=== PATIENT | female | born 1980 | race Two or more races ===

== ENCOUNTER 2024-05-15 10:34 | Inpatient (IN) | payer OTHER ==
[2024-05-15] MEDS ORDERED: IBUPROFEN 400 MG TABLET (FP) PO PRN (11:55)
[2024-05-15] MEDS ORDERED: BISMUTH SUBSALICYLATE 524 MG/30 ML PO PRN (11:55)
[2024-05-15] MEDS ORDERED: NALOXONE (NARCAN) HCL 4 MG/0.1 ML SPRAY NS PRN (11:55)
[2024-05-15] MEDS ORDERED: MAG HYDROX/AL HYDROX/SIMETH 30 ML UNIT-DOSE CUP PO PRN (11:55)
[2024-05-15] MEDS ORDERED: NICOTINE POLACRILEX 2 MG GUM BUC PRN (11:55)
[2024-05-15] MEDS ORDERED: LOPERAMIDE HCL 2 MG CAPSULE PO PRN (11:55)
[2024-05-15] MEDS ORDERED: methaDONE HCL 10 MG TABLET (FOR DETOX USE ONLY) PO PRN (11:55)
[2024-05-15] MEDS ORDERED: guaiFENesin 600 MG TABLET.ER (FP) PO PRN (11:55)
[2024-05-15] MEDS ORDERED: DICYCLOMINE HCL 10 MG CAPSULE PO PRN (11:55)
[2024-05-15] MEDS ORDERED: POLYETHYLENE GLYCOL (HEALTHYLAX) 3350 17 GM PACKET PO PRN (11:55)
[2024-05-15] MEDS ORDERED: MAGNESIUM HYDROX 2400MG/30ML ORAL SUSPENSION 30 ML CUP PO PRN (11:55)
[2024-05-15] MEDS ORDERED: BENZOCAINE/MENTHOL (CHLORASEPTIC ) LOZENGE MM PRN (11:55)
[2024-05-15] MEDS ORDERED: BENZONATATE 200 MG CAPSULE PO PRN (11:55)
[2024-05-15] MEDS ORDERED: ACETAMINOPHEN 325 MG TABLET (FP) PO PRN (11:55)
[2024-05-15 12:49] VITALS: BMI 27.1
[2024-05-15] MEDS: methaDONE HCL 10 MG TABLET (FOR DETOX USE ONLY) PO ONE ×2 (14:00→22:35)
[2024-05-15] MEDS: BUPRENORPHINE/NALOXONE 0.5 MG/0.125 MG FILM SL ONE ×2 (14:16→22:36)
[2024-05-15] MEDS: cloNIDine HCL 0.1 MG TABLET PO SCH (14:16)
[2024-05-15] MEDS ORDERED: cloNIDine HCL 0.1 MG TABLET ONE (14:18)
[2024-05-15] MEDS ORDERED: BUPRENORPHINE/NALOXONE 0.5 MG/0.125 MG FILM ONE (14:18)
[2024-05-15] MEDS ORDERED: methaDONE HCL 10 MG TABLET (FOR DETOX USE ONLY) ONE (14:18)
[2024-05-15] MEDS: diazePAM 5 MG TABLET PO SCH (17:30)
[2024-05-15] MEDS: MELATONIN 5 MG TABLETS PO SCH (22:34)
[2024-05-15] MEDS: THIAMINE 100 MG TABLET PO SCH (22:34)
[2024-05-15] MEDS: METHOCARBAMOL 500 MG TABLET PO PRN (22:36)
[2024-05-16] MEDS: PRENATAL VITAMINS W/ FOLIC ACID TABLET (FP) PO SCH (09:16)
[2024-05-16] MEDS: BUPRENORPHINE/NALOXONE 0.5 MG/0.125 MG FILM SL SCH (09:17)
[2024-05-16] MEDS: ONDANSETRON *ODT* 4 MG TABLET SL PRN (12:05)
[2024-05-16 12:24] LABS: HEMATOCRIT 40.3 % (34.1-44.9); HEMOGLOBIN 13.1 g/dL (11.2-15.7); MCHC 32.5 g/dl (32.2-35.5); MEAN CELL VOLUME 98.5 fl (79.4-94.8); MEAN PLT VOLUME 9.4 fl (9.4-12.3); PLATELET COUNT 449 x10^3/uL (182-369); RDW 12.3 % (12.2-17.1)
[2024-05-16 12:28] LABS: POTASSIUM 4.2 mmol/L (3.5-5.1)
[2024-05-16 12:48] LABS: ALBUMIN 4.1 g/dl (3.4-5.0); BLOOD UREA NITROGEN 7.6 mg/dL (7-18); CALCIUM 9.4 mg/dL (8.5-10.1)
[2024-05-16 12:52] LABS: CREATININE 0.7 mg/dL (0.55-1.3)
[2024-05-16 12:53] LABS: BILIRUBIN,TOTAL 0.6 mg/dL (0.2-1); TOT PROT 7.9 g/dl (6.4-8.2)
[2024-05-16] MEDS: diazePAM 5 MG TABLET PO PRN (14:42)
[2024-05-16] MEDS: MIRTAZAPINE 15 MG TABLET (FP) PO SCH (22:24)
[2024-05-16] MEDS: SUVOREXANT 10 MG TABLET PO PRN (23:52)
[2024-05-16] MEDS: hydrOXYzine PAMOATE 25 MG CAPSULE (FP) PO PRN (23:56)
[2024-05-17] MEDS: diazePAM 5 MG TABLET PO SCH (05:41)
[2024-05-17] MEDS: methaDONE HCL 10 MG TABLET (FOR DETOX USE ONLY) PO ONE (09:32)
[2024-05-17] MEDS: BUPRENORPHINE/NALOXONE 2 MG/0.5 MG FILM PACKET SL SCH (09:32)
[2024-05-17] MEDS: ASPIRIN 81 MG CHEWABLE TABLETS PO SCH (14:47)
[2024-05-18] MEDS: diazePAM 5 MG TABLET PO SCH (05:48)
[2024-05-18] MEDS: BUPRENORPHINE/NALOXONE 4 MG/1 MG FILM PACKET SL SCH (09:20)
[2024-05-18] MEDS: IBUPROFEN 600 MG TABLET (FP) PO PRN (17:18)
[2024-05-19] MEDS: diazePAM 5 MG TABLET PO ONE (05:39)
[2024-05-19] MEDS: BUPRENORPHINE/NALOXONE 8 MG/2 MG FILM PACKET SL SCH (09:38)
[2024-05-19] MEDS: LIDOCAINE 5% TOPICAL PATCH TP SCH (11:05)
[2024-05-19] MEDS: LIDOCAINE PATCH REMOVAL MC SCH (22:07)
[2024-05-20] MEDS: BUPRENORPHINE/NALOXONE 8 MG/2 MG FILM PACKET SL SCH (09:29)
[2024-05-21 21:44] VITALS: RESP 18
[2024-05-21] MEDS: BUPRENORPHINE/NALOXONE 8 MG/2 MG FILM PACKET SL SCH (22:30)
[2024-05-22] MEDS: BUPRENORPHINE/NALOXONE 8 MG/2 MG FILM PACKET SL ONE (05:55)
[2024-05-22 09:09] VITALS: BP 113/85; PULSE 86; TEMP 97.8
== END 2024-05-22 10:34 | disposition home or self-care (01) | DRG 773 ==
LOC: YASAS 10:34 → Y6N 14:28
PROVIDERS: ADMIT Allergy & Immunology; ATTEND Allergy & Immunology
PROC: HZ2ZZZZ Detoxification Services for Substance Abuse Treatment (ICD-10-PCS; principal; 2024-05-15)
DX: F11.23 Opioid dependence with withdrawal (principal); F13.230 Sedative, hypnotic or anxiolytic dependence with withdrawal, uncomplicated; F17.210 Nicotine dependence, cigarettes, uncomplicated; F19.282 Other psychoactive substance dependence with psychoactive substance-induced sleep disorder; F19.280 Other psychoactive substance dependence with psychoactive substance-induced anxiety disorder; M54.50 Low back pain, unspecified; G89.29 Other chronic pain
CPT/HCPCS: 36415; 80053; 80305; 80307; 85027; 86780; 93005; 93010; Q0162

== ENCOUNTER 2024-07-27 13:25 | Inpatient (IN) | payer OTHER ==
[2024-07-27 13:39] VITALS: BMI 25.4
[2024-07-27] MEDS ORDERED: POLYETHYLENE GLYCOL (HEALTHYLAX) 3350 17 GM PACKET PO PRN (14:04)
[2024-07-27] MEDS ORDERED: DICYCLOMINE HCL 10 MG CAPSULE PO PRN (14:04)
[2024-07-27] MEDS ORDERED: guaiFENesin 600 MG TABLET.ER (FP) PO PRN (14:04)
[2024-07-27] MEDS ORDERED: IBUPROFEN 600 MG TABLET (FP) PO PRN (14:04)
[2024-07-27] MEDS ORDERED: BISMUTH SUBSALICYLATE 524 MG/30 ML PO PRN (14:04)
[2024-07-27] MEDS ORDERED: BENZOCAINE/MENTHOL (CHLORASEPTIC ) LOZENGE MM PRN (14:04)
[2024-07-27] MEDS ORDERED: NALOXONE (NARCAN) HCL 4 MG/0.1 ML SPRAY NS PRN (14:04)
[2024-07-27] MEDS ORDERED: ONDANSETRON *ODT* 4 MG TABLET SL PRN (14:04)
[2024-07-27] MEDS ORDERED: LOPERAMIDE HCL 2 MG CAPSULE PO PRN (14:04)
[2024-07-27] MEDS ORDERED: MAG HYDROX/AL HYDROX/SIMETH 30 ML UNIT-DOSE CUP PO PRN (14:04)
[2024-07-27] MEDS ORDERED: MAGNESIUM HYDROX 2400MG/30ML ORAL SUSPENSION 30 ML CUP PO PRN (14:04)
[2024-07-27] MEDS ORDERED: BENZONATATE 200 MG CAPSULE PO PRN (14:04)
[2024-07-27] MEDS ORDERED: IBUPROFEN 400 MG TABLET (FP) PO PRN (14:04)
[2024-07-27] MEDS ORDERED: ACETAMINOPHEN 325 MG TABLET (FP) PO PRN (14:04)
[2024-07-27] MEDS ORDERED: methaDONE HCL 10 MG TABLET (FOR DETOX USE ONLY) ONE (14:46)
[2024-07-27] MEDS ORDERED: NICOTINE 7 MG/24 HOURS TOPICAL PATCH TD ONE (14:47)
[2024-07-27] MEDS ORDERED: ASPIRIN 81 MG CHEWABLE TABLETS ONE (14:47)
[2024-07-27] MEDS ORDERED: PRENATAL VITAMINS W/ FOLIC ACID TABLET (FP) PO ONE (14:47)
[2024-07-27] MEDS: NICOTINE 7 MG/24 HOURS TOPICAL PATCH TD SCH (14:53)
[2024-07-27] MEDS: PRENATAL VITAMINS W/ FOLIC ACID TABLET (FP) PO SCH (14:53)
[2024-07-27] MEDS: methaDONE HCL 10 MG TABLET (FOR DETOX USE ONLY) PO ONE (14:53)
[2024-07-27] MEDS: ASPIRIN 81 MG CHEWABLE TABLETS PO SCH (14:53)
[2024-07-27] MEDS: LIDOCAINE 5% TOPICAL PATCH TP SCH (15:15)
[2024-07-27] MEDS: diazePAM 5 MG TABLET PO SCH (17:18)
[2024-07-27] MEDS: cloNIDine HCL 0.1 MG TABLET PO SCH (17:18)
[2024-07-27] MEDS: THIAMINE 100 MG TABLET PO SCH (22:15)
[2024-07-27] MEDS: MELATONIN 5 MG TABLETS PO SCH (22:15)
[2024-07-27] MEDS: BUPRENORPHINE/NALOXONE 0.5 MG/0.125 MG FILM SL ONE (22:16)
[2024-07-27] MEDS: LIDOCAINE PATCH REMOVAL MC SCH (22:19)
[2024-07-28 10:52] LABS: HEMATOCRIT 33.8 % (34.1-44.9); HEMOGLOBIN 11.1 g/dL (11.2-15.7); MCHC 32.8 g/dl (32.2-35.5); MEAN CELL VOLUME 101.8 fl (79.4-94.8); MEAN PLT VOLUME 9.6 fl (9.4-12.3); PLATELET COUNT 305 x10^3/uL (182-369); RDW 13.8 % (12.2-17.1)
[2024-07-28] MEDS: BUPRENORPHINE/NALOXONE 0.5 MG/0.125 MG FILM SL SCH (10:56)
[2024-07-28] MEDS: methaDONE HCL 10 MG TABLET (FOR DETOX USE ONLY) PO ONE (10:58)
[2024-07-28 11:03] LABS: POTASSIUM 4.3 mmol/L (3.5-5.1)
[2024-07-28 11:10] LABS: ALBUMIN 3.3 g/dl (3.4-5.0); BLOOD UREA NITROGEN 6.4 mg/dL (7-18)
[2024-07-28 11:15] LABS: BILIRUBIN,TOTAL 0.5 mg/dL (0.2-1); CREATININE 0.8 mg/dL (0.55-1.3); TOT PROT 6.4 g/dl (6.4-8.2)
[2024-07-28] MEDS: SUVOREXANT 5 MG TABLET PO PRN (22:59)
[2024-07-29] MEDS: diazePAM 5 MG TABLET PO SCH (05:51)
[2024-07-29] MEDS: BUPRENORPHINE/NALOXONE 2 MG/0.5 MG FILM PACKET SL SCH (09:20)
[2024-07-29] MEDS: diazePAM 5 MG TABLET PO PRN (10:02)
[2024-07-29] MEDS: hydrOXYzine PAMOATE 25 MG CAPSULE (FP) PO PRN (18:39)
[2024-07-30] MEDS: diazePAM 5 MG TABLET PO SCH (05:40)
[2024-07-30] MEDS: methaDONE HCL 10 MG TABLET (FOR DETOX USE ONLY) PO ONE (09:10)
[2024-07-30] MEDS: BUPRENORPHINE/NALOXONE 4 MG/1 MG FILM PACKET SL SCH (09:11)
[2024-07-30 21:03] VITALS: RESP 16
[2024-07-30] MEDS: METHOCARBAMOL 500 MG TABLET PO PRN (22:51)
[2024-07-31] MEDS: diazePAM 5 MG TABLET PO ONE (05:57)
[2024-07-31 09:25] VITALS: BP 107/58; PULSE 67; TEMP 96.9
[2024-07-31] MEDS: BUPRENORPHINE/NALOXONE 8 MG/2 MG FILM PACKET SL SCH (09:29)
[2024-08-01] MEDS ORDERED: methaDONE HCL 10 MG TABLET (FOR DETOX USE ONLY) PO ONE (10:00)
[2024-08-01] MEDS ORDERED: BUPRENORPHINE/NALOXONE 8 MG/2 MG FILM PACKET SL SCH (10:00)
== END 2024-07-31 10:00 | disposition home or self-care (01) | DRG 773 ==
LOC: YASAS 13:25 → Y6N 14:45
PROVIDERS: ADMIT Allergy & Immunology; ATTEND Allergy & Immunology
PROC: HZ2ZZZZ Detoxification Services for Substance Abuse Treatment (ICD-10-PCS; principal; 2024-07-27)
DX: F11.23 Opioid dependence with withdrawal (principal); F10.230 Alcohol dependence with withdrawal, uncomplicated; F14.20 Cocaine dependence, uncomplicated; F17.210 Nicotine dependence, cigarettes, uncomplicated; F19.280 Other psychoactive substance dependence with psychoactive substance-induced anxiety disorder; F19.282 Other psychoactive substance dependence with psychoactive substance-induced sleep disorder; G47.00 Insomnia, unspecified; M51.26 Other intervertebral disc displacement, lumbar region; G89.29 Other chronic pain; Z99.89 Dependence on other enabling machines and devices
CPT/HCPCS: 36415; 80053; 82962; 85027; 86780; 93005; 93010